=== PATIENT | female | born 1960 | race Caucasian/White ===

== ENCOUNTER 2021-07-02 16:17 | Observation (INO) ==
[2021-07-02] MEDS ORDERED: Aspirin 81 MG TAB.CHEW PO ONE (16:58)
[2021-07-02] MEDS ORDERED: *HR* FentaNYL (PF) 100 MCG/2 ML VIAL IVP ONE (17:01)
[2021-07-02 17:24] LABS: Basophils # 0.1 K/mcL (0.0-0.2); Basophils % 0.6 %; Eosinophils # 0.3 K/mcL (0.0-0.6); Eosinophils % 3.8 %; Hematocrit 44.1 % (35.3-44.9); Hemoglobin 14.7 g/dL (11.5-15.4); Immature Granulocytes % 0.5 % (0-4); Lymphocytes % 24.2 %; Mean Corpuscular HGB Conc 33.3 g/dL (31.6-35.5); Mean Corpuscular Hemoglobin 31.3 pg (28.0-33.3); Mean Corpuscular Volume 93.8 fL (83.0-100.0); Mean Platelet Volume 9.7 fL (9.4-12.4); Monocytes # 0.4 K/mcL (0.0-1.3); Monocytes % 5.3 %; Neutrophils # 5.3 K/mcL (1.6-8.9); Platelet Count 279 K/mcL (140-400); Red Cell Distribution Width 13.8 % (11.5-14.5); Segmented Neutrophils % 65.6 %; White Blood Count 8.1 K/mcL (4.3-11.1)
[2021-07-02 17:35] LABS: Activated Partial Thrombo Time 31.8 Seconds (26.0-36.0)
[2021-07-02 17:43] LABS: BUN/Creatinine Ratio 17 (6-26); Blood Urea Nitrogen 16 mg/dL (6-20); Carbon Dioxide 26 mEq/L (23-29); Chloride 105 mEq/L (98-107); Glucose 90 mg/dL (70-105); Osmolality,Calculated 291 (280-300); Potassium 3.8 mEq/L (3.5-5.1); Sodium 140 mEq/L (136-145); eGFR For African Americans > 60 (> 60); eGFR For Non-African Americans > 60 (> 60)
[2021-07-02 17:44] LABS: Troponin I < 0.03 ng/mL (< 0.04)
[2021-07-02] MEDS ORDERED: *HR* Labetalol 20 MG/4 ML SYRINGE IVP ONE (18:19)
[2021-07-02] MEDS ORDERED: Acetaminophen 325 MG TABLET PO PRN (18:25)
[2021-07-02] MEDS ORDERED: Naloxone 0.4 MG/ML INJ IVP PRN (18:25)
[2021-07-02] MEDS ORDERED: Nitroglycerin 0.4 MG TAB.SUBL SL PRN ×2 (18:27→18:40)
[2021-07-02] MEDS ORDERED: *HR* LORazepam 0.5 MG TABLET PO PRN (18:27)
[2021-07-02] MEDS ORDERED: traZODone 50 MG TABLET PO PRN (18:39)
[2021-07-02] MEDS: Ondansetron ODT 4 MG TAB.RAPDIS SL PRN (21:00)
[2021-07-02] MEDS: tiZANidine 4 MG TABLET PO PRN (21:22)
[2021-07-02] MEDS: *HR* HYDROcodone/Acet 5/325 mg TABLET PO PRN (21:23)
[2021-07-02] MEDS: carvediloL 25 MG TABLET PO SCH (21:23)
[2021-07-02] MEDS ORDERED: *HR* Promethazine 25 MG/ML VIAL IM ONE (23:15)
[2021-07-02] MEDS ORDERED: 0.9 % Sodium Chloride 1,000 ML IVC ONE (23:16)
[2021-07-02] MEDS ORDERED: 0.9 % Sodium Chloride 1,000 ML ONE (23:16)
[2021-07-03 00:26] LABS: Troponin I < 0.03 ng/mL (< 0.04)
[2021-07-03] MEDS: Sacubitril/Valsartan 24/26 MG 1 TABLET PO SCH ×3 (00:34→06:25)
[2021-07-03 00:38] LABS: Alanine Aminotransferase 14 Units/L (7-52); Albumin 4.4 g/dL (3.5-5.7); Albumin/Globulin Ratio 1.7 (1.1-2.2); Alkaline Phosphatase 55 Units/L (34-104); Aspartate Amino Transferase 31 Units/L (13-39); Bilirubin,Direct 0.1 mg/dL (0.0-0.2); Bilirubin,Indirect 0.3 mg/dL (0.0-1.0); Bilirubin,Total 0.4 mg/dL (0.3-1.0); Globulin 2.6 g/dL (2.4-3.5); Lipase 11 Units/L (11-82)
[2021-07-03] MEDS: 0.9 % Sodium Chloride 1,000 ML IVC SCH ×2 (03:22→13:30)
[2021-07-03 06:18] LABS: Hematocrit 40.6 % (35.3-44.9); Hemoglobin 13.2 g/dL (11.5-15.4); Mean Corpuscular HGB Conc 32.5 g/dL (31.6-35.5); Mean Corpuscular Hemoglobin 31.4 pg (28.0-33.3); Mean Corpuscular Volume 96.4 fL (83.0-100.0); Mean Platelet Volume 10.4 fL (9.4-12.4); Platelet Count 245 K/mcL (140-400); Red Blood Count 4.21 M/mcL (3.82-4.97); Red Cell Distribution Width 14.3 % (11.5-14.5); White Blood Count 6.4 K/mcL (4.3-11.1)
[2021-07-03] MEDS: carvediloL 25 MG TABLET PO SCH ×2 (06:26→16:26)
[2021-07-03 06:36] LABS: Calcium 9.1 mg/dL (8.6-10.3); Magnesium 2.4 mg/dL (1.6-2.6); Potassium 3.9 mEq/L (3.5-5.1)
[2021-07-03] MEDS: Ondansetron ODT 4 MG TAB.RAPDIS SL PRN ×2 (06:57→16:05)
[2021-07-03] MEDS ORDERED: lisinopriL 10 MG TABLET PO SCH (09:00)
[2021-07-03] MEDS ORDERED: Aspirin Enteric Coated 81 MG Tablet PO SCH (09:00)
[2021-07-03] MEDS ORDERED: BuPROPion XL (24 HR) 150 MG TABLET PO SCH (09:00)
[2021-07-03] MEDS ORDERED: Furosemide 20 MG TABLET PO SCH (09:00)
[2021-07-03] MEDS: *HR* HYDROcodone/Acet 5/325 mg TABLET PO PRN (09:18)
[2021-07-03] MEDS: tiZANidine 4 MG TABLET PO PRN (16:05)
[2021-07-04 12:03] VITALS: BP 118/63; PULSE 57; RESP 14; TEMP 97.7; O2SAT 96
== END 2021-07-03 17:09 | disposition short-term general hospital (02) ==
LOC: INPPIK 16:17 → EMEROOPIK 16:17 → INPPIK 19:18
PROVIDERS: ADMIT Family Medicine; ATTEND Family Medicine